=== PATIENT | female | born 1985 | race Caucasian/White ===

== ENCOUNTER 2019-12-04 12:38 | Observation (INO) ==
[2019-12-04] MEDS ORDERED: NS 1000 ML 1,000 ML IV ONE (14:19)
[2019-12-04] MEDS: DUONEB 0.5 MG/3 MG (3 mL) NEB SCH ×3 (14:31→21:15)
[2019-12-04] MEDS ORDERED: NS 1000 ML 1,000 ML IV SCH (15:00)
[2019-12-04 15:02] LABS: BASOPHILS # (AUTO) 0.1 X10^3/uL (0.0-0.1); BASOPHILS % (AUTO) 0.9 % (0.2-1.0); EOSINOPHILS # (AUTO) 0.2 x10^3/uL (0.0-0.2); EOSINOPHILS % (AUTO) 2.5 % (0.9-2.9); LYMPHOCYTES # (AUTO) 1.8 X10^3/uL (1.3-2.9); LYMPHOCYTES % (AUTO) 20.8 % (21.0-51.0); MEAN CORPUSCULAR HEMOGLOBIN 29.6 pg (27.0-34.0); MEAN CORPUSCULAR HGB CONC 33.3 g/dL (33.0-35.0); MEAN CORPUSCULAR VOLUME 88.8 fL (80.0-100.0); MEAN PLATELET VOLUME 9.3 fL (7.4-11.0); MONOCYTES # (AUTO) 0.7 x10^3/uL (0.3-0.8); NEUTROPHILS # (AUTO) 5.9 x10^3/uL (2.2-4.8); NEUTROPHILS % (AUTO) 67.8 % (42.0-75.0); PLATELET COUNT 248 X10^3/uL (150.0-450.0); RED CELL DISTRIBUTION WIDTH 14.4 % (11.6-16.5); WHITE BLOOD COUNT 8.6 X10^3/uL (3.6-10.0)
[2019-12-04] MEDS: ROCEPHIN VIAL 1 GRAM 1 G in NS 100 ML IV + SPIKE MINIBAG* 100 ML IV SCH (15:02)
[2019-12-04 15:13] VITALS: BMI 45.3
[2019-12-04 15:13] LABS: ALANINE AMINOTRANSFERASE 103 Units/L (12-78); ALBUMIN 3.6 g/dL (3.4-5.0); ALKALINE PHOSPHATASE 226 Units/L (46-116); ASPARTATE AMINO TRANSFERASE 46 Units/L (15-37); BLOOD UREA NITROGEN 5 mg/dL (7-18); CARBON DIOXIDE 20.6 mmol/L (21-32); CHLORIDE 101 mmol/L (98-107); CREATININE 0.74 mg/dL (0.55-1.02); SODIUM 138 mmol/L (136-145); TOTAL PROTEIN 8.1 g/dL (6.4-8.2); eGFR NON BLACK RACES > 60 (>60)
--- NOTE | 2019-12-04 15:15 | RAD ---
HISTORYSOB, ARF, S/P SGASTRIC SLEEVESTUDYCHEST, 1 VIEWCOMPARISONX-ray 02/22/2018FINDINGSHeart is normal in size. No pneumothorax, focal infiltrate, or pleural effusion is seen.IMPRESSIONNo abnormalities are seen.Electronically signed by: Eduard Knowles (Dec 04, 2019 15:13:52)
[2019-12-04 15:48] LABS: IRON 30 ug/dL (50-175)
[2019-12-04] MEDS: MILK OF MAGNESIA PO SCH (16:50)
[2019-12-04] MEDS ORDERED: MICRO K EXTEN CAP 10 MEQ PO PRN (17:00)
[2019-12-04] MEDS ORDERED: K-DUR TAB 20 MEQ PO PRN (17:00)
[2019-12-04] MEDS ORDERED: KLOR-CON PO PRN (17:00)
[2019-12-04] MEDS ORDERED: POTASSIUM CHL 40 MEQ/NS 0.45% 500 ML IV PRN (17:00)
[2019-12-04] MEDS ORDERED: POTASSIUM CHLORIDE LIQ 20 MEQ UDC PO PRN (17:00)
[2019-12-04] MEDS ORDERED: K-RIDER 10 MEQ/NS 100 ML 10 MEQ/100 ML BAG IV PRN (17:00)
[2019-12-04] MEDS ORDERED: POTASSIUM CHL 60 MEQ/NS 0.45% 500 ML IV PRN (17:00)
[2019-12-04] MEDS ORDERED: NS + KCL 20 MEQ/L 1,000 ML IV ONE (19:24)
[2019-12-04] MEDS: NS + KCL 20 MEQ/L 1,000 ML IV SCH (19:39)
[2019-12-04] MEDS ORDERED: COLACE CAP 100 MG PO SCH (21:00)
[2019-12-04] MEDS ORDERED: PULMICORT NEB TX 0.5 MG NEB SCH (21:00)
[2019-12-04] MEDS ORDERED: ZOFRAN INJ 4 MG VIAL IVP PRN (21:45)
[2019-12-05 06:15] LABS: BASOPHILS # (AUTO) 0.1 X10^3/uL (0.0-0.1); BASOPHILS % (AUTO) 0.8 % (0.2-1.0); EOSINOPHILS # (AUTO) 0.2 x10^3/uL (0.0-0.2); EOSINOPHILS % (AUTO) 2.5 % (0.9-2.9); HEMOGLOBIN 11.3 g/dL (12.0-16.0); LYMPHOCYTES # (AUTO) 1.9 X10^3/uL (1.3-2.9); LYMPHOCYTES % (AUTO) 27.2 % (21.0-51.0); MEAN CORPUSCULAR HEMOGLOBIN 29.6 pg (27.0-34.0); MEAN CORPUSCULAR HGB CONC 33.1 g/dL (33.0-35.0); MEAN CORPUSCULAR VOLUME 89.3 fL (80.0-100.0); MEAN PLATELET VOLUME 9.3 fL (7.4-11.0); MONOCYTES # (AUTO) 0.6 x10^3/uL (0.3-0.8); MONOCYTES % (AUTO) 9.1 % (0.0-13.0); NEUTROPHILS # (AUTO) 4.2 x10^3/uL (2.2-4.8); NEUTROPHILS % (AUTO) 60.4 % (42.0-75.0); PLATELET COUNT 211 X10^3/uL (150.0-450.0); RED BLOOD COUNT 3.81 X10^6/uL (3.5-5.4); RED CELL DISTRIBUTION WIDTH 14.5 % (11.6-16.5)
[2019-12-05 06:30] LABS: ALANINE AMINOTRANSFERASE 81 Units/L (12-78); ALBUMIN 2.8 g/dL (3.4-5.0); ALKALINE PHOSPHATASE 172 Units/L (46-116); ASPARTATE AMINO TRANSFERASE 39 Units/L (15-37); BLOOD UREA NITROGEN 3 mg/dL (7-18); CALCIUM 8.1 mg/dL (8.5-10.1); CARBON DIOXIDE 20.8 mmol/L (21-32); CHLORIDE 108 mmol/L (98-107); COR CA(FOR HYPOALB) 9.1 mg/dL (8.5-10.1); CREATININE 0.64 mg/dL (0.55-1.02); SODIUM 142 mmol/L (136-145); TOTAL PROTEIN 6.6 g/dL (6.4-8.2); eGFR NON BLACK RACES > 60 (>60)
[2019-12-05] MEDS: DUONEB 0.5 MG/3 MG (3 mL) NEB SCH (08:50)
[2019-12-05] MEDS: MILK OF MAGNESIA PO SCH (09:24)
[2019-12-05] MEDS: ROCEPHIN VIAL 1 GRAM 1 G in NS 100 ML IV + SPIKE MINIBAG* 100 ML IV SCH (09:25)
[2019-12-05] MEDS: NS + KCL 20 MEQ/L 1,000 ML IV SCH (09:44)
[2019-12-05] MEDS ORDERED: NS 1000 ML 1,000 ML IV ONE (10:36)
[2019-12-05 12:14] VITALS: BP 111/71
--- NOTE | 2019-12-05 12:18 | DR.CARTERS ---
Short Stay Summary - Short Stay Summary for: Short Stay Summary for Date of:: 12/05/19 - Admission Date Date of Admission: 12/04/19 - Discharge Date Discharge Date: 12/05/19 - Admission Diagnoses (1) Dehydration Status: Acute (2) Nausea and vomiting Status: Acute (3) Acute bronchitis Status: Acute - Hospital Course Hospital Course: IS A 34 YEAR OLD PATIENT OF OURS WHO PRESENTED TO THE HOSPITAL YESTERDAY WITH COMPLAINTS OF A PRODUCTIVE COUGH AND SHORTNESS OF BREATH. SHE ALSO REPORTED NAUSEA AND VOMITING, NASAL CONGESTION, SORE THROAT, AND PRESSURE IN EARS. SHE HAD GASTRIC SLEEVE SURGERY, TWO WEEKS AGO. SHE WAS ADIMTTED FOR FURTHER EVALUATION AND TREATMENT OF DEHYDRATION, HYPOTENSION, AND ACUTE BRONCHITIS. ON ADMISSION, VITLAS WERE 97.6-99-20-97%-130/83. LABS WERE OBTAINED. ABNORMAL LAB VALUES INCLUDE THE FOLLOWING: POTASSIUM 2.8, CARBON DIOXIDE 20.6, BUN 5, IRON 30, MAGNESIUM 1.9, AST 46, ALT 103, ALK PHOS 226, VITAMIN B12 1560. A CHEST XRAY WAS OBTAINED AND REVEALED: NO ABNORMALITIES SEEN. SHE WAS GIVEN A NORMAL SALINE BOLUS, THEN STARTED ON NORMLA SALINE WITH 20MEQ KCL AT 75 ML/HR, ROCEPHIN 1G IV DAILY, RESPIRATORY TX, AND A BOWEL REGIMEN DUE TO CONSTIPATION. THE POTASSIUM AND MAGNESIUM PROTOCOL WAS ALSO STARTED. WE PLANNED TO FOLLOW UP WITH AM LABS AND CONTINUE TO MONITOR. ON AM ROUNDS, PATIENT IS ALERT AND ORIENTED, LYING IN BED ON MORNING ROUNDS. SHE CONTINUES WITH COUGH AND SHORTNESS OF BREATH, BUT DENIES NAUSEA OR VOMITING. ON EXAMINATION, HEART IS REGULAR IN RATE AND RHYTHM. BILATERAL LUNGS ARE NOTED WITH DIMINISHED LUNG SOUNDS THROUGHOUT. ABDOMEN IS ROUND, SOFT, AND NON-TENDER WITH NORMAL BOWEL SOUNDS NOTED IN ALL QUADRANTS. HER VITALS THIS MORNING WERE: 97.5-80-18-98%-116/53. LABS WERE OBTAINED. ABNORMAL LAB VALUES INCLUDE THE FOLLOWING: HGB 11.3, HCT 34.0, CHLORIDE 108, CARBON DIOXIDE 20.8, BUN 3, CALCIUM 8.1, AST 39, ALT 81, ALK PHOS 172, ALBUMIN 2.8. WE PLANNED FOR DISCHARGE. INSTRUCTIONS FOR MEDICATIONS AND FOLLOW UP WERE DISCUSSED WITH PATIENT AND FAMILY. THEY VERBALIZED UNDERSTANDING OF ALL ORDERS. SHE WAS DISCHARGED HOME WITH FAMILY IN STABLE CONDITION WITH PRESCRIPTION FOR CEFDINIR 300MG PO BID X 10 DAYS. SHE IS INSTRUCTED TO CONTINUE HER HOME MEDICATIONS AND FOLLOW UP IN THE OFFICE ON 12/13/19 AT 1400. - Discharge Medications Discharge Medications: Home Medication List alprazolam 0.5 mg PO DAILY 12/04/19 [History] buspirone 10 mg PO BID 12/04/19 [History] fluoxetine 20 mg PO DAILY 12/04/19 [History] norethindrone-e.estradiol-iron [ FE 11/27 (28)] 1 tab PO DAILY 12/04/19 [History] ondansetron 4 mg PO Q6H PRN 12/04/19 [History] promethazine 12.5 mg PO Q6H PRN 12/04/19 [History] tramadol-acetaminophen 1 tab PO Q6H PRN 12/04/19 [History] cefdinir 300 mg PO BID #20 cap 12/05/19 [Rx] Prescriptions: cefdinir Christiano Dickens Prescription drug monitoring program results: PDMP was not reviewed - Discharge Plan Disposition: HOME, SELF-CARE Condition: Stable Prescriptions: cefdinir 300 mg PO BID #20 cap - Follow up/Referrals Follow up/Referrals: BAKARI LEHMAN [Nurse Practitioner] - 12/13/19 2:00 pm - Instructions Instructions: Fall Prevention in the Home, Adult, [id number], Dehydration, Adult, [id number], Rehydration, Adult, Acute Bronchitis, Adult, [id number], Pain Medicine Instructions, [id number] Additional Instructions: DIET TOLERATED. ACTIVITY TOLERATED. Forms: Patient Portal
== END 2019-12-05 15:15 | disposition home or self-care (01) ==
LOC: MED/SURG
PROVIDERS: ADMIT Internal Medicine; ATTEND Internal Medicine
DX: R55 Syncope and collapse; R06.02 Shortness of breath; I95.89 Other hypotension; Z98.84 Bariatric surgery status; Z79.899 Other long term (current) drug therapy; J20.9 Acute bronchitis, unspecified; R74.0 Nonspecific elevation of levels of transaminase and lactic acid dehydrogenase [LDH]; N17.8 Other acute kidney failure; R11.2 Nausea with vomiting, unspecified; E87.6 Hypokalemia; E86.0 Dehydration; K59.09 Other constipation
CPT/HCPCS: 36415; 71010; 71045; 80053; 82607; 82728; 82746; 83540; 83735; 84132; 84466; 85025; 94640; 96360; 96361; 96374; A4216; A4222; G0378; J0696; J2405; J7030; J7050; J7620; J7626